=== PATIENT | male | born 1955 | race Caucasian/White ===

== ENCOUNTER 2017-05-03 18:32 | Emergency (ER) | payer OTHER ==
[2017-05-03] MEDS ORDERED: diphenhydrAMINE HCL 12.5 MG/5 ML UD GT ONE (18:53)
[2017-05-03] MEDS ORDERED: IBUPROFEN SUSP 100 MG/5 ML UD GT ONE (18:53)
[2017-05-03] MEDS ORDERED: methylPREDNISolone SODIUM SUC 40 MG/ML VIAL IV ONE (18:53)
[2017-05-03] MEDS ORDERED: SODIUM CHLORIDE 0.9% 1000ML 500 ML IVS ONE (19:03)
--- NOTE | 2017-05-03 19:03 | RAD ---
EXAM DESCRIPTION: Chest,1 View CLINICAL HISTORY: 62 years Male cardiac arrest COMPARISON: 05/02/2017 FINDINGS: Tracheostomy tube in place. Defibrillator pads over the chest. Bilateral pulmonary infiltrates suggesting pulmonary edema. Infiltrate is worse in the left lower lobe. The possibility of aspiration is not excluded. No pneumothorax is noted. IMPRESSION: Interval deterioration with diffuse bilateral pulmonary infiltrates consistent with pulmonary edema. Possibility of aspiration is not excluded Electronically signed by: Aicha Brown MD 05/03/2017 7:03 PM DOOR PANELER
[2017-05-03] MEDS ORDERED: cefTRIAXone SODIUM 1 GM VIAL IM ONE (19:18)
[2017-05-03] MEDS ORDERED: MEROPENEM 1 GM in SODIUM CHL 0.9% 50ML MIN-BAG+ 50 ML IVPB ONE (19:31)
[2017-05-03 19:52] VITALS: O2SAT 100
[2017-05-03] MEDS ORDERED: LIDOCAINE 1% 10 ML VIAL INJ ONE (19:53)
--- NOTE | 2017-05-03 19:57 | ED.PDOC ---
History of Present Illness - General Chief Complaint: Cardiac Respiratory Arrest Stated Complaint: s/p arrest Time Seen by Provider: 05/03/17 18:36 Source: EMS notes reviewed, family, jail records Exam Limitations: clinical condition - History of Present Illness Initial Comments: the patient is a 62-year-old male presenting to emergency room's after a cardiac arrest at the long-term care ventilator facility. Apparently respiratory with suctioning the patient for a mucous plug when the patient arrested. CPR including chest compression was performed for 2 minutes after which they were able to get a pulse back. On the time EMS arrived the patient was alert and looking around. No shocks were given. The patient has been oxygenatingand ventilating adequately on his previous settings. The patient has shown normal sinus rhythm to sinus tachycardia since his arrival here and since EMS arrived for evaluation. The patient has apparently been treated for a pneumonia recently and had his last doses of Levaquin and doxycycline just yesterday. He does apparently have a very extensive medical history and is a full code. 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 The patient has had multiple deteriorations since that time including multiple pneumonias and urinary tract infections. He is also receiving blood at some point in time. There is a questionable diagnosis of breast cancer on his jail paperwork that we have been unable to verify at this point. He does have a decubitus ulcer to his left buttock. He also has a history of seizures. He has apparently had a stroke in the past. He is a insulin-dependent diabetic and does have a history of GERD and CHF. I do not see any blood thinners on his medication list. There is been no recent evidence of any GI bleeding. the patient does have a trach, PEG and Ashley in place. The patient is able to move his feet and little bit but he is unable to move his legs in general and he is apparently completely flaccid in his bilateral upper extremities. The patient is alert and looks around. He does wince and grimace and try to move a little bit with his shoulders when IV attempts are made. He does not mouth communicatively. Timing/Duration: 1/2 hour Severity: severe Improving Factors: nothing Worsening Factors: nothing Allergies/Adverse Reactions: Allergies Cholesterol Allergy (Verified 05/03/17 18:35) Flu Virus Vaccine [From Fluvirin] Allergy (Verified 05/03/17 18:35) Penicillins Allergy (Verified 05/03/17 18:35) Thimerosal [From Fluvirin] Allergy (Verified 05/03/17 18:35) Review of Systems - Review of Systems Review of Systems: 05/03/17 19:57 unable to obtain secondary to patient's inability to communicate. Past Medical History (General) - Patient Medical History Hx Seizures: Yes Hx Stroke: Yes Hx of COPD: Yes Hx Congestive Heart Failure: Yes Hx Hypertension: Yes Hx Diabetes: Yes Hx Gastroesophageal Reflux: Yes - Vaccination History Hx Influenza Vaccination: No Hx Pneumococcal Vaccination: Yes - Social History Hx Tobacco Use: Yes Hx Substance Use: Yes - Cannabis - Activities of Daily Living Half-Way/Assisted Living (if applicable):: [facility] Family Medical History - Family History Father Family History: Unknown Living Status: Unknown Physical Exam - Physical Exam General Appearance: Alert, Anxious, Other - he patient is overbreathing the vent little bit. Eye Exam: bilateral normal Ears, Nose, Throat: hearing grossly normal - as best can be assessed., normal ENT inspection - poor dentition. Neck: non-tender, full range of motion, other - tracheostomy is in place. Respiratory: other - mild increased respiratory rate. The patient does have primarily left lower lung rales. No wheezing. Moderate air movement. Cardiovascular/Chest: normal peripheral pulses, regular rate, rhythm, other - the patient has trace edema to bilateral lower extremities but does have +2 edema to bilateral upper extremities. Gastrointestinal/Abdominal: non tender - G-tube is in place, soft Rectal Exam: other - stool shows no obvious blood grossly. Guaiac is pending. The patient does have a 2-1/2 inch decubitus ulcer to his left buttock. The central part appears to be stage III. Back Exam: normal inspection - therwise Extremity: normal range of motion - passive, non-tender, no calf tenderness - none obvious, normal capillary refill Neurologic: alert, other - see history of present illness Skin Exam: pallor Comments: Vital Signs - 24 hr 05/03/17 05/03/17 05/03/17 18:37 19:05 19:52 Temperature 98 F 98 F Pulse Rate [ 102 H 100 H Right Brachial] Respiratory 18 18 Rate Blood Pressure 114/85 [Right Arm] O2 Sat by Pulse 98 100 100 Oximetry Progress - Progress Progress: 05/03/17 20:09 the patient is a 62-year-old male presenting to the emergency room secondary to cardiac arrest at the long-term care ventilator facility. Patient' s vital signs have remained stable since he's arrived here. He does appear to have several significant problems in the correcting. The patient is significantly anemic and does need a transfusion however he does have multiple antibodies and we do not have a match for his blood here. This will be performed at the receiving facility. There is no evidence of any active GI bleeding clinically. This is still most likely source. He is obviously had multiple transfusions in the past given the number of antibodies on his blood work. I do not see any blood thinners on his medication list. The patient has what appears to be a worsening left lower lobe infiltrate at least. He is receiving a dose of meropenem. He has apparently just finished a course of Levaquin and doxycycline at his current facility. There is a question of superimposed CHF in this patient. Clinically he does not appear to be significantly fluid overloaded however we are going to limit extra fluid through the IV as he will need transfusions. His BUN is elevated though this is likely multifactorial. His d-dimer is elevated though he did just receive chest compressions. His BNP is mildly elevated though we do not have a previous to compare to. His white blood cell count is 15,000 but I do not have a previous to compare to is well there. He did already receive a dose of Solu- Medrol while planning for a transfusion. Transferring for higher level of care. He has displayed no evidence of any cardiac arrhythmia since arriving here. Ventilator settings appear to be near his baseline. - Results/Orders Results/Orders: 05/03/17 18:35 PACKED CELLS,LR Stat 05/03/17 18:36 Telemetry .CONTINUOUS Capnography .ONCE Mechanical Ventilation DAILY 05/03/17 18:37 Oxygen Delivery Assessment: QSHIFT 05/03/17 18:45 EKG STAT 05/04/17 09:00 Oxygen Daily Laboratory Results - last 24 hr 05/03/17 05/03/17 05/03/17 18:35 18:35 18:35 WBC 15.4 H RBC 2.44 L Hgb 6.9 L* Hct 21.4 L MCV 87.5 MCH 28.2 MCHC 32.2 L RDW 19.0 H Plt Count 379 MPV 8.3 Absolute Neuts (auto) 10.40 H Absolute Lymphs (auto) 3.40 Absolute Monos (auto) 1.20 H Absolute Eos (auto) 0.30 Absolute Basos (auto) 0.10 Neutrophils % 67.5 Lymphocytes % 22.2 Monocytes % 7.9 Eosinophils % 1.8 Basophils % 0.6 PT 12.4 INR 1.100 PTT (SP) 28.3 D-Dimer, Quantitative 2282 H* pCO2 pO2 HCO3 ABG pH ABG O2 Saturation ABG Base Excess ABG Deoxyhemoglobin Oxyhemoglobin % Carboxyhemoglobin % Methemoglobin % Sat Calc Total Hemoglobin Sodium 138 Potassium 4.4 Chloride 99 L Carbon Dioxide 26 Anion Gap 17.4 BUN 46 H Creatinine 1.15 BUN/Creatinine Ratio 40.0 H Random Glucose 162 H Serum Osmolality 291.1 Lactic Acid Calcium 8.9 Magnesium 1.9 Total Bilirubin 1.4 H AST 73 H ALT 85 H Alkaline Phosphatase 193 H Creatine Kinase 36 L CK-MB (CK-2) 1.3 CK-MB (CK-2) % Not Reportable Troponin I 0.02 B-Natriuretic Peptide 311.0 H* Serum Total Protein 7.5 Albumin 2.1 L Globulin 5.4 H Albumin/Globulin Ratio 0.4 L Stool Occult Blood 05/03/17 05/03/17 05/03/17 18:35 18:36 19:57 WBC RBC Hgb Hct MCV MCH MCHC RDW Plt Count MPV Absolute Neuts (auto) Absolute Lymphs (auto) Absolute Monos (auto) Absolute Eos (auto) Absolute Basos (auto) Neutrophils % Lymphocytes % Monocytes % Eosinophils % Basophils % PT INR PTT (SP) D-Dimer, Quantitative pCO2 42 pO2 45 L* HCO3 25.6 ABG pH 7.400 ABG O2 Saturation 78.2 L ABG Base Excess 1.2 ABG Deoxyhemoglobin 21.2 H Oxyhemoglobin % 76.1 L Carboxyhemoglobin % 0.7 Methemoglobin % Sat 2.0 H Calc Total Hemoglobin 8.1 L Sodium Potassium Chloride Carbon Dioxide Anion Gap BUN Creatinine BUN/Creatinine Ratio Random Glucose Serum Osmolality Lactic Acid 3.3 H* Calcium Magnesium Total Bilirubin AST ALT Alkaline Phosphatase Creatine Kinase CK-MB (CK-2) CK-MB (CK-2) % Troponin I B-Natriuretic Peptide Serum Total Protein Albumin Globulin Albumin/Globulin Ratio Stool Occult Blood Negative EKG shows normal sinus rhythm at a rate of 98 bpm. Very mild right axis deviation. Normal R-wave progression. No acute ST segment changes concerning for ischemia. chest x-ray shows worsening left lower lobe infiltrate. There are changes consistent with congestive heart failure which is a known history of the patient. Departure - Departure Clinical Impression: Cardiac arrest, Respiratory arrest Disposition: Transfer to Hospital Transfer to Outside Facility - Transfer Information Accepting Provider:: dr casey Accepting Facility: [facility] Reason for Transfer: required specialist not available
[2017-05-03] MEDS ORDERED: SODIUM CHL 0.9% 50ML MIN-BAG+ 50 ML IVPB ONE (19:59)
[2017-05-03] MEDS ORDERED: MEROPENEM 1 GM VIAL IVPB ONE (20:00)
[2017-05-03 21:18] VITALS: BP 102/56; TEMP 97.7
== END 2017-05-03 22:05 | disposition short-term general hospital (02) ==
LOC: ER 18:32
DX: R09.2 Respiratory arrest (principal); Z86.74 Personal history of sudden cardiac arrest; I11.0 Hypertensive heart disease with heart failure; I50.9 Heart failure, unspecified; J44.9 Chronic obstructive pulmonary disease, unspecified; E11.9 Type 2 diabetes mellitus without complications; L89.329 Pressure ulcer of left buttock, unspecified stage; D64.9 Anemia, unspecified; Z99.11 Dependence on respirator [ventilator] status; Z93.1 Gastrostomy status
CPT/HCPCS: 36415; 36600; 71045; 80053; 82270; 82550; 82553; 82803; 82805; 83605; 83735; 83880; 84484; 85025; 85379; 85610; 85730; 93005; 94002; 94770; J0696; J1030; J2185; J7050; Q0163